=== PATIENT | male | born 1990 | race African-American/Black ===

== ENCOUNTER 2025-02-19 10:51 | Emergency (ER) | payer OTHER, SELFPAY ==
[~2025-02-19] VITALS: Ht 172.7 cm; Wt 77.4 kg
[2025-02-19 10:56] VITALS: BP 141/82; TEMP 98.3; O2SAT 100
== END 2025-02-19 11:50 | disposition left against medical advice (07) ==
LOC: M ED 10:51
DX: Z53.21 Procedure and treatment not carried out due to patient leaving prior to being seen by health care provider (principal)

== ENCOUNTER 2025-02-19 12:13 | Emergency (ER) | payer OTHER ==
[~2025-02-19] VITALS: Ht 177.8 cm; Wt 61.0 kg
[2025-02-19 12:22] VITALS: BP 158/78; TEMP 98.5; O2SAT 100
[2025-02-19] MEDS: LIDOCAINE 1% MDV 20 ML VIAL SC ONE (12:35)
[2025-02-19] MEDS: BOOSTRIX VACCINE (TETANUS/DIPHTH/ACEL. PERTUSSIS) 0.5 ML SYR IM.IMMUN ONE (13:03)
[2025-02-19 13:23] LABS: PLATELET COUNT, AUTOMATED 285 10^3/uL (150-450)
[2025-02-19 13:44] LABS: BARBITURATES URINE NEGATIVE (NEGATIVE); BENZODIAZEPINES URINE NEGATIVE (NEGATIVE); CANNABINOIDS URINE NEGATIVE (NEGATIVE); COCAINE METABOLITE URINE NEGATIVE (NEGATIVE); METHADONE URINE NEGATIVE (NEGATIVE); OPIATES URINE NEGATIVE (NEGATIVE); PHENCYCLIDINE URINE NEGATIVE (NEGATIVE)
[2025-02-19 13:49] LABS: ETHYL ALCOHOL (ETHANOL) < 0.003 % (0.000-0.010)
[2025-02-19 13:50] LABS: ALT/SGPT 31 U/L (7.0-40); AST/SGOT 31 U/L (<34); CALCIUM LEVEL 10.5 MG/DL (8.5-10.1); CARBON DIOXIDE LEVEL 28 MMOL/L (20-31); CHLORIDE LEVEL 107 MMOL/L (98-107); CREATININE FOR GFR 1.24 MG/DL (0.70-1.30); GLOMERULAR FILTRATION RATE 78.7 (>60); POTASSIUM SERUM 4.5 MMOL/L (3.5-5.1); SALICYLATE LEVEL < 3.0 MG/DL (<30); SODIUM LEVEL 145 MMOL/L (136-145)
[2025-02-19 14:01] LABS: AMPHETAMINES LEVEL URINE POSITIVE (NEGATIVE)
[2025-02-19] MEDS: IBUPROFEN 600 MG TAB PO ONE (14:14)
[2025-02-19] MEDS: ACETAMINOPHEN 325 MG TAB PO ONE (15:06)
== END 2025-02-19 17:32 | disposition home or self-care (01) ==
LOC: M ED 12:13
DX: Z04.6 Encounter for general psychiatric examination, requested by authority (principal); S61.216A Laceration without foreign body of right little finger without damage to nail, initial encounter; X58.XXXA Exposure to other specified factors, initial encounter; Y92.9 Unspecified place or not applicable; Y93.9 Activity, unspecified; Y99.9 Unspecified external cause status; F43.10 Post-traumatic stress disorder, unspecified

== ENCOUNTER 2025-02-24 14:35 | Emergency (ER) | payer OTHER ==
[~2025-02-24] VITALS: Ht 172.7 cm; Wt 77.7 kg
[2025-02-24 14:40] VITALS: BP 139/73; TEMP 98.3; O2SAT 99
== END 2025-02-25 00:06 | disposition left against medical advice (07) ==
LOC: M ED 14:35 → EDBD 14:35 → M ED 02-25 00:06
DX: Z53.21 Procedure and treatment not carried out due to patient leaving prior to being seen by health care provider (principal)

== ENCOUNTER 2025-05-04 06:32 | Inpatient (IN) | payer OTHER ==
[~2025-05-04] VITALS: Ht 172.7 cm; Wt 67.7 kg
[2025-05-04 07:02] LABS: PLATELET COUNT, AUTOMATED 251 10^3/uL (150-450)
[2025-05-04 07:30] LABS: AMPHETAMINES LEVEL URINE NEGATIVE (NEGATIVE); BARBITURATES URINE NEGATIVE (NEGATIVE); BENZODIAZEPINES URINE NEGATIVE (NEGATIVE); COCAINE METABOLITE URINE NEGATIVE (NEGATIVE); METHADONE URINE NEGATIVE (NEGATIVE); OPIATES URINE NEGATIVE (NEGATIVE); PHENCYCLIDINE URINE NEGATIVE (NEGATIVE)
[2025-05-04 07:32] LABS: CANNABINOIDS URINE POSITIVE (NEGATIVE)
[2025-05-04 07:34] LABS: ALT/SGPT 51 U/L (7.0-40); AST/SGOT 42 U/L (<34); CALCIUM LEVEL 9.7 MG/DL (8.5-10.1); CARBON DIOXIDE LEVEL 30 MMOL/L (20-31); CHLORIDE LEVEL 105 MMOL/L (98-107); CREATININE FOR GFR 1.09 MG/DL (0.70-1.30); GLOMERULAR FILTRATION RATE > 90.0 (>60); POTASSIUM SERUM 4.3 MMOL/L (3.5-5.1); SALICYLATE LEVEL < 3.0 MG/DL (<30); SODIUM LEVEL 141 MMOL/L (136-145)
[2025-05-04 07:36] LABS: ETHYL ALCOHOL (ETHANOL) < 0.003 % (0.000-0.010)
[2025-05-04] MEDS ORDERED: HOME MED LIST COMPLETE! XX SCH (08:25)
[2025-05-04] MEDS ORDERED: IBUPROFEN 400 MG TAB PO PRN (10:35)
[2025-05-04] MEDS ORDERED: MAALOX 30 ML SUSP *UDC PO PRN (10:35)
[2025-05-04] MEDS ORDERED: HALOPERIDOL 5 MG TAB PO PRN (10:35)
[2025-05-04] MEDS ORDERED: LORazepam 1 MG TAB PO PRN (10:35)
[2025-05-04] MEDS ORDERED: OLANZapine 5 MG TAB PO PRN (10:35)
[2025-05-04] MEDS ORDERED: traZODone 50 MG TAB PO PRN (10:35)
[2025-05-04] MEDS ORDERED: MOM 30 ML SUSPENSION UDC PO PRN (10:35)
[2025-05-04] MEDS ORDERED: ACETAMINOPHEN 325 MG TAB PO PRN (10:35)
[2025-05-04] MEDS: NICOTINE 14 MG/24 HR TRANSDERMAL TD SCH (11:16)
[2025-05-05 06:54] VITALS: BP 143/67; TEMP 97.3; O2SAT 100
[2025-05-05] MEDS: OLANZapine 5 MG TAB PO SCH (13:45)
[2025-05-06 15:33] VITALS: BP 141/90; TEMP 98.4; O2SAT 100
[2025-05-07 06:47] VITALS: BP 149/75; TEMP 97.8; O2SAT 100
[2025-05-07 15:41] VITALS: BP 133/70; TEMP 97.8; O2SAT 97
[2025-05-08 06:34] VITALS: BP 148/74; TEMP 98; O2SAT 100
[2025-05-09 06:35] VITALS: BP 130/89; TEMP 97.1; O2SAT 100
== END 2025-05-09 11:43 | disposition home or self-care (01) | DRG 880 ==
LOC: M ED 06:32 → M ED INP 10:31 → M PSY 14:41
PROVIDERS: ADMIT Internal Medicine; ATTEND Internal Medicine
DX: F41.9 Anxiety disorder, unspecified (principal); F43.10 Post-traumatic stress disorder, unspecified